=== PATIENT | male | born 2000 | race Hispanic/Latino ===

== ENCOUNTER 2023-04-02 15:33 | Emergency (ER) | payer OTHER ==
[2023-04-02] MEDS ORDERED: XYLOCAINE 1% HCL 20 ML MDV IJ ONE (15:43)
[2023-04-02] MEDS ORDERED: XYLOCAINE 1% HCL 20 ML MDV ONE (15:43)
--- NOTE | 2023-04-02 16:02 | ERPHSYRPT ---
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 His exact activities at the time of the injury are uncertain. The injury involves the second metatarsal metacarpal phalangeal joint of the left hand dorsum aspect there is a 2 cm laceration over the dorsum of the second MPJ ne) Physician History: Patient suffered a laceration to the second metatarsophalangeal joint of the left hand dorsal aspect involving some tendon injury the exact amount of laceration to the extensor tendon is unclear from examination of the wound but appears to be significant. Occurred: just prior to arrival Method of Injury: incised (Cut apparently while incising or cutting asparagus.) Quality: throbbing Severity of Pain-Max: moderate Severity of Pain-Current: moderate Extremities Pain Location: 2nd finger: left (Laceration of the dorsum of the MPJ joint portions of the EXTR extensor tendon are extruding from the wound.) Modifying Factors: Improves With: movement Allergies/Adverse Reactions: No Known Drug Allergies Allergy (Verified 04/02/23 15:37) - Review of Systems Constitutional: No Fever, No Chills Eyes: No Symptoms Ears, Nose, & Throat: No Symptoms Respiratory: No Cough, No Dyspnea Cardiac: No Chest Pain, No Edema, No Syncope Abdominal/Gastrointestinal: No Abdominal Pain, No Nausea, No Vomiting, No Diarrhea Genitourinary Symptoms: No Dysuria Musculoskeletal: No Back Pain, No Neck Pain Skin: No Rash Neurological: No Dizziness, No Focal Weakness, No Sensory Changes Psychological: No Symptoms Endocrine: No Symptoms All Other Systems: Reviewed and Negative - Nursing Vital Signs Nursing Vital Signs: Initial Vital Signs Temperature 97.9 F 04/02/23 15:34 Pulse Rate 67 04/02/23 15:34 Respiratory Rate 18 04/02/23 15:34 Blood Pressure 123/67 04/02/23 15:34 O2 Sat by Pulse Oximetry 99 04/02/23 15:34 Pain Scale Pain Intensity 8 - Physical Exam General Appearance: mild distress Eyes, Ears, Nose, Throat Exam: moist mucous membranes Neck Exam: non-tender, supple Cardiovascular/Respiratory Exam: chest non-tender, no respiratory distress Back Exam: normal inspection Shoulder Exam: normal inspection, non-tender Elbow/Forearm Exam: normal inspection, non-tender Wrist Exam: normal inspection, non-tender Hand Exam: laceration (Laceration left hand and second MPJ joint dorsal aspect 2 cm in length tendon material extruding from the wound.) Neuro/Tendon Exam: normal sensation, tendon injury visualized Mental Status Exam: alert, cooperative Skin Exam: normal color, warm, dry SpO2 Interpretation: normal SpO2: 100 O2 Delivery: Room Air Procedures - Laceration/Wound Repair Left Dorsal Finger Time of Procedure: 17:04 (Laceration is at the dorsum of the second left metatarsal phalangeal joint approximately 2 cm) Wound Location: Left, hand Wound Length (cm): 2 Wound's Depth, Shape: contused tissue, into subcut Wound Explored: no foreign body noted Irrigated: Yes Hibiclens Prep: Yes Anesthesia: 1% Lidocaine Volume Anesthetic (ccs): 3 Wound Debrided: minimal Wound Repaired With: sutures Suture Size/Type: 5-0 Number of Sutures: 3 Layer Closure?: No Sterile Dressing Applied?: Yes Splint Applied?: Yes - Course Nursing assessment & vital signs reviewed: Yes - Radiology Exams Left Hand X-ray Interpretation: Interpreted by me, Other (Second metatarsal phalangeal joint dorsum no apparent bony injury) Ordered Tests: Active Orders 24 hr Category Date Time Status Splint STAT Care 04/02/23 17:02 Ordered HAND (MINIMUM 3 VIEWS) Stat Exams 04/02/23 15:40 Completed Medication Summary Generic Name Dose Route Start Last Admin Trade Name Freq PRN Reason Stop Dose Admin Hydrocodone Bitart/Acetaminophen 1 tablet 04/02/23 16:44 04/02/23 16:49 Hydrocodone/Acetamin 10-325 Mg Tablet PO 04/07/23 16:43 1 tablet Q4H PRN PRN Administration PAIN Discontinued Medications Generic Name Dose Route Start Last Admin Trade Name Freq PRN Reason Stop Dose Admin Cephalexin HCl 500 mg 04/02/23 16:44 04/02/23 16:49 Cephalexin Mh500 Mg Capsule PO 04/02/23 16:45 500 mg STAT ONE Administration Cephalexin HCl Confirm 04/02/23 16:44 Cephalexin Mh500 Mg Capsule Administered 04/02/23 16:45 Dose 500 mg .ROUTE .STK-MED ONE Diphtheria/Tetanus/Acell Pertussis 0.5 ml 04/02/23 17:01 Tdap --Diph,Pertuss(Acell),Tet Vac/Pf 0.5 Ml Vial IM 04/02/23 17:02 .ONCE ONE Lidocaine HCl 5 ml 04/02/23 15:43 04/02/23 15:49 Lidocaine Hcl 1% 20 Ml Mdv 20 Ml Ml IJ 04/02/23 15:44 5 ml STAT ONE Administration Lidocaine HCl Confirm 04/02/23 15:43 Lidocaine Hcl 1% 20 Ml Mdv 20 Ml Ml Administered 04/02/23 15:44 Dose 5 ml .ROUTE .STK-MED ONE - Progress Progress: improved Progress Note: 04/02/23 17:[address] Mena in [place] the hand surgeon he asked us to irrigate the wound administer a cephalosporin antibiotic some pain medicine's sterile splint and to put in some approximating sutures. We attempted to follow his directions closely. Discussed with Dr.: Other (Dr. Mena) Medical Desision Making - Discussion of managment Care discussed with:: specialist (Dr. Mena hand surgeon) Agreed on:: Treatment plan, need for follow-up Will see patient: In office - Diagnostic Testing Radiological Interpretation: Interpreted by me - Risk of complications The pt has a mod risk of morbidity or mortality based on: Need for minor surgical intervention in patient with know risk factors - Departure Departure Disposition: Home Clinical Impression: Injury of tendon of finger Condition: Stable Critical Care Time: No Instructions: Surgical Wound (DC) Additional Instructions: You can expect a call from the hand surgeon's office tomorrow morning with directions on when to come to the office. Prescriptions: Cephalexin Mh 500 mg [Keflex 500 mg] 500 mg PO TID #21 cap Tramadol HCl 50 mg [Ultram 50 mg] 50 mg PO Q6H 3 Days #12 tablet MDD 4
--- NOTE | 2023-04-02 16:40 | XRAY ---
Indication: Second metacarpal injury. Comparison: None 3 view left hand demonstrates normal bones, articulation, and soft tissues.
[2023-04-02 16:41] VITALS: BP 109/64
[2023-04-02] MEDS ORDERED: KEFLEX 500 MG PO ONE (16:44)
[2023-04-02] MEDS ORDERED: HYDROCODONE-ACETAMIN 10-325 MG ONE (16:44)
[2023-04-02] MEDS ORDERED: KEFLEX 500 MG ONE (16:44)
[2023-04-02] MEDS ORDERED: HYDROCODONE-ACETAMIN 10-325 MG PO PRN (16:44)
[2023-04-02] MEDS ORDERED: Adacel Vial IM ONE ×2 (17:01→17:03)
[2023-04-02] MEDS ORDERED: BACIGUENT PACKET ONE (17:03)
[2023-04-02] MEDS ORDERED: BACIGUENT PACKET TP ONE (17:04)
[2023-04-02] MEDS ORDERED: NORCO 5/325 MG PO ONE (17:20)
[2023-04-02] MEDS ORDERED: NORCO 5/325 MG ONE (17:22)
[2023-04-02 17:27] VITALS: PULSE 68; O2SAT 98
== END 2023-04-02 17:32 | disposition home or self-care (01) ==
LOC: ED 15:33
DX: S66.321A Laceration of extensor muscle, fascia and tendon of left index finger at wrist and hand level, initial encounter (principal); S61.412A Laceration without foreign body of left hand, initial encounter; W26.0XXA Contact with knife, initial encounter; Y93.G1 Activity, food preparation and clean up; Y99.0 Civilian activity done for income or pay; Z79.891 Long term (current) use of opiate analgesic; Z23 Encounter for immunization
CPT/HCPCS: 12001; 73130; 90471; 90715; 96372; 99284; A9270-GY